=== PATIENT | male | born 1980 | race Caucasian/White ===

== ENCOUNTER 2018-03-26 18:09 | Emergency (ER) | payer OTHER ==
[~2018-03-26] VITALS: Ht 180.3 cm; Wt 122.5 kg
[2018-03-26 18:45] LABS: ABSOLUTE BASOPHIL COUNT 0 /CUMM (0.0-0.2); ABSOLUTE EOSINOPHIL COUNT 0 /CUMM (0.0-0.7); ABSOLUTE GRANULOCYTE CT 4.8 /CUMM (1.4-6.5); ABSOLUTE LYMPH COUNT 0.9 /CUMM (1.2-3.4); ABSOLUTE MONOCYTE COUNT 0.3 /CUMM (0.10-0.60); BASOPHIL % 0.2 % (0.0-2.0); EOSINOPHIL % 0.8 % (0-5); GRANULOCYTE % 78.3 % (42.2-75.2); HEMATOCRIT 51.2 % (42-52); MEAN CORPUSCULAR HGB 29.9 PG (27.0-31.0); MEAN CORPUSCULAR HGB CONC 33.7 G/DL (33.0-37.0); MEAN CORPUSCULAR VOLUME 88.7 FL (80.0-94.0); MEAN PLATELET VOLUME 7.7 FL (7.4-10.4); PLATELET COUNT 228 /CUMM (130-400); RBC DISTRIBUTION WIDTH 14.5 % (11.5-14.5); RED BLOOD CELL CT 5.77 /CUMM (4.70-6.10); WHITE BLOOD CELL COUNT 6.1 /CUMM (4.8-10.8)
[2018-03-26] MEDS ORDERED: NEURONTIN800 M2 PO (18:50)
[2018-03-26] MEDS ORDERED: SUBOXONE 8 MG-1 EACH SL (18:50)
[2018-03-26] MEDS ORDERED: DIAZEPAM5 M1 PO ×2 (18:51→21:56)
--- NOTE | 2018-03-26 19:41 | ED GI/GU/ABDOMINAL COMPLAINT ---
History of Present Illness General Chief Complaint: Abdominal Pain/Flank Pain Stated Complaint: ABD PAIN X2 WEEKS, PANIC ATTACK Source: patient, family Exam Limitations: no limitations Allergies Coded Allergies: No Known Allergies (03/26/18) Triage Note: COMPLAINS OF PANICK ATTACKS AND CONSTANT ABD PAIN FOR THE PAST 2 WEEKS Triage Nurses Notes Reviewed? yes HPI: 37 YO M with PMH of anxiety, panic attacks, OCDs, depression, drug addiction on suboxone, back pain, shoulder pain and migraine came to ED with chief of abdominal pain, nausea and anxiety for last two weeks. Patient reportedly he was in his usual state of health 2 weeks back when he suddenly started to have abdominal pain, 8/10, intermittent, generalized, nonradiating and relieved a little bit after bowel movement. Patient also reported having diarrhea for the same time. He reported that for the last 24 hours he had 2 bowel movements that were loose and nonbloody. Patient also reported having nausea and he is not able to eat anything except bone broth. This morning he had 2 bowls of bone broth. Patient reported that he is able to drink water without any complaint. He also reported having headache 8/10, generalized associated with light sensitivity. Patient denied chest pain, cough, fever, chills, vomiting, sick contact, trauma to abdomen, suicidal ideation, neck stiffness, dysuria and hematuria. Patient reported that he is taking his anxiety medications and Suboxone regularly but his anxiety medication is not working. He wanted to go to the primary care physician who is prescribing him anxiety medication but he is on vacation. Patient reported that he was taking aspirin as his primary care physician prescribed him to prevent heart disease. (Abdulkadir DOMINGUEZ,[place]) Vital Signs & Intake/Output Vital Signs & Intake/Output Vital Signs Date Time Temp Pulse Resp B/P B/P Pulse O2 O2 Flow FiO2 Mean Ox Delivery Rate 03/26 2207 97.6 87 16 122/78 97 Room Air 03/26 1848 Room Air Room Air 03/26 1825 97.1 100 18 130/86 100 Room Air ED Intake and Output 03/27 0000 03/26 1200 Intake Total 240 Output Total Balance 240 Intake, Oral 240 Patient 270 lb Weight Reconcile Medications Buprenorphine HCl/Naloxone HCl (Suboxone 8 MG-2 MG Sl Film) 8 MG-2 MG FILM 1 STR SL BIDP OPIATE (Reported) Diazepam 5 MG TABLET 1 TAB PO BID ANXIETY (Reported) Diazepam 5 MG TABLET 1 TAB PO TID PRN anxiety Gabapentin (Neurontin) 800 MG TABLET 1 TAB PO 4 TIMES/DAY "NEUROLOGICAL DAMAGE " (Reported) Hyoscyamine (Levsin) 0.125 MG TABLET 1-2 TAB PO Q6P PRN ABDOMINAL CRAMPS Ranitidine HCl (Zantac) 300 MG TABLET 1 TAB PO QPM stomache acid (Rachna DOMINGUEZ,[place]) Past History Travel History Traveled to [place] past 21 day No Medical History Any Pertinent Medical History? none Neurological: NONE EENT: NONE Cardiovascular: NONE Respiratory: NONE Gastrointestinal: NONE Hepatic: NONE Renal: NONE Musculoskeletal: NONE Psychiatric: PANICK ATTACKS Surgical History Surgical History: non-contributory Psychosocial History What is your primary language Hebrew Tobacco Use: Never used ETOH Use: denies use Illicit Drug Use: denies illicit drug use Family History Hx Contributory? No (Uziel Panchal MD) Review of Systems Review of Systems Constitutional: Reports: weakness. Denies: chills, fever. EENTM: Reports: see HPI. Respiratory: Denies: cough, short of breath, sputum production, wheezing. Cardiovascular: Reports: palpitations. Denies: chest pain, syncope. GI: Reports: abdominal pain, diarrhea, nausea. Denies: bloody stool, vomiting. Genitourinary: Denies: discharge, frequency, hematuria, pain. Musculoskeletal: Reports: see HPI. Skin: Reports: no symptoms. Neurological/Psychological: Reports: anxiety, depressed, headache. Denies: confusion, numbness, tingling. (Uziel Panchal MD) Physical Exam Physical Exam General Appearance: well developed/nourished, alert, awake, anxious Head: atraumatic, normal appearance Eyes: Bilateral: normal appearance, PERRL, EOMI, normal inspection. Ears, Nose, Throat, Mouth: hearing grossly normal Neck: normal inspection, supple Respiratory: normal breath sounds, chest non-tender Cardiovascular: regular rate/rhythm Gastrointestinal: normal bowel sounds, soft, non-tender Extremities: normal range of motion Neurologic/Psych: awake, alert, oriented x 3, normal gait Core Measures ACS in differential dx? No Sepsis Present: No Sepsis Focused Exam Completed? No (Uziel Panchal MD) Progress Differential Diagnosis: cholecystitis, diverticulitis, gastritis, inflamm bowel dis, Irritable bowel syndrom Plan of Care: Orders Procedure Date/time Status URINALYSIS 03/26 1827 Complete LIPASE 03/26 1827 Complete LACTIC ACID 03/26 1827 Complete COMPREHENSIVE METABOLIC PANEL 03/26 1827 Complete CBC WITHOUT DIFFERENTIAL 03/26 1827 Complete Laboratory Tests 03/26/182126: Lactic Acid Cancelled 03/26/181939: Urine Color YEL, Urine Clarity CLEAR, Urine pH 8.0, Ur Specific [place] 1.010, Urine Protein NEG, Urine Ketones 15 H, Urine Nitrite NEG, Urine Bilirubin NEG, Urine Urobilinogen 0.2, Ur Leukocyte Esterase NEG, Ur Microscopic EXAM NOT REQUIRED, Urine Hemoglobin NEG, Urine Glucose NEG 03/26/18 183: Anion Gap 17 H, Estimated GFR > 60, BUN/Creatinine Ratio 11.0, Glucose 170 H, Lactic Acid 1.6, Calcium 10.3 H, Total Bilirubin 1.2, AST 24, ALT 26, Alkaline Phosphatase 60, Total Protein 7.7, Albumin 4.9, Globulin 2.8, Albumin/Globulin Ratio 1.8, Lipase 78, CBC w Diff NO MAN DIFF REQ, RBC 5.77, MCV 88.7, MCH 29.9, MCHC 33.7, RDW 14.5, MPV 7.7, Gran % 78.3 H, Lymphocytes % 15.2 L, Monocytes % 5.5, Eosinophils % 0.8, Basophils % 0.2, Absolute Granulocytes 4.8, Absolute Lymphocytes 0.9 L, Absolute Monocytes 0.3, Absolute Eosinophils 0, Absolute Basophils 0 Initial ED EKG: none Comments: 37 YO M with PMH of anxiety, panic attacks, OCDs, depression, drug addiction on suboxone, back pain, shoulder pain and migraine came to ED with chief of abdominal pain, nausea and anxiety for last two weeks. Considering patient's abdominal pain that could be due to irritable bowel syndrome secondary to anxiety, could be gastroenteritis or gastritis. Patient has normal lab values and his lipase is normal, so pancreatitis is ruled out. We will do abdominal imaging study to rule out any abdominal pathology. Patient was given diazepam to control his anxiety and dicyclomine for abdominal pain. We will reevaluate the patient again and look for his imaging study results. His CT scan abdomen came back negative. We will discharge the patient and advised him to take hyoscyamine for his abdominal pain and we will increase the dose of diazepam for his anxiety. Patient was advised to see database management system specialist in 24 hours and primary care physician in a week. He was advised to come back to ED if his condition worsens. (Abdulkadir DOMINGUEZ,[place]) Departure Departure Disposition: HOME OR SELF CARE Condition: Stable Clinical Impression Primary Impression: Nonspecific abdominal pain Secondary Impressions: Anxiety Referrals: Hi DOMINGUEZ,Jeronimo Soto (PCP/Family) Robert Younger MD Departure Forms: Customer Survey General Discharge Information (Abdulkadir DOMINGUEZ,Uziel) Departure Additional Instructions: Please see your primary care physician within one week. Please see database management system specialist within 24 to 48 hours after the discharge for reevaluation. Please come back to ED if your condition worsens. Take your medications regularly. [place] diet. Consider a liquid diet until your diarrhea begins to improve. Increase your diazepam to 3 times per day. Levsin as prescribed for abdominal pain. Zantac as prescribed to control stomach acid. Prescriptions: Current Visit Scripts Hyoscyamine (Levsin) 1-2 TAB PO Q6P PRN ABDOMINAL CRAMPS #20 TAB Ranitidine HCl (Zantac) 1 TAB PO QPM #30 TAB Diazepam 1 TAB PO TID PRN anxiety #10 TAB Resident Co-Sign Statement Statement: ED Attending supervision documentation- [X] I saw and evaluated the patient. I have also reviewed all the pertinent lab results and diagnostic results. I agree with the findings and the plan of care as documented in the Resident's documentation. [] I have reviewed the ED Record and agree with the Resident's documentation. [] Additions or exceptions (if any) to the Resident's note and plan are summarized below: [] (Rachna DOMINGUEZ,[place])
--- NOTE | 2018-03-26 21:32 | CT SCAN REPORT ---
EXAMINATION: CT ABDOMEN AND PELVIS WITHOUT CONTRAST CLINICAL INFORMATION: Diverticulosis, inflammatory bowel disease with abdominal pain, nausea and diarrhea. COMPARISON: CT abdomen and pelvis 04/19/2010. TECHNIQUE: Multidetector volumetric imaging was performed from the superior aspect of the liver through the pubic symphysis. Sagittal and coronal reformatted images were obtained on the technologist's workstation. DLP: 1076.48 mGy-cm FINDINGS: LUNG BASES: Small 3.6 mm pleural-based nodule is noted at the left base which was present in 2009. The lung bases are otherwise clear. LIVER, GALLBLADDER, AND BILIARY TREE: Two large calcified granulomas are present in the liver The liver is normal in size, shape, and attenuation. No focal worrisome hepatic lesion or biliary ductal dilatation is present. The gallbladder is unremarkable with no evidence of radiopaque gallstones, gallbladder wall thickening, or obvious pericholecystic inflammatory changes. PANCREAS: Unremarkable. SPLEEN: Large calcified granulomas are present. ADRENAL GLANDS: Unremarkable. KIDNEYS AND URETERS: The kidneys are normal in size, shape, and attenuation. No hydronephrosis, hydroureter, or calculi seen. No perinephric stranding. BLADDER: There is symmetric thickening of the contracted bladder. GASTROINTESTINAL TRACT: The small and large bowel are unremarkable. The appendix contains a small density possibly an appendicolith but is otherwise unremarkable without inflammatory changes. ABDOMINAL WALL: No significant hernia is appreciated. LYMPH NODES: Small para-aortic lymph nodes are present but there is no adenopathy. VASCULAR: Unremarkable. No evidence of AAA. PELVIC VISCERA: Unremarkable. OSSEOUS STRUCTURES: Unremarkable. IMPRESSION: 1. The cause for the patient's abdominal pain, nausea and diarrhea has not been found. 2. Incidental note made of: a. Hepatic and splenic granulomas. b. Contracted thick-walled bladder.
[2018-03-26] MEDS ORDERED: LEVSIN0.125 M1 PO (21:56)
[2018-03-26] MEDS ORDERED: ZANTAC300 MG PO (21:56)
[2018-03-26 22:07] VITALS: BP 122/78
== END 2018-03-26 22:12 ==
LOC: ERH 18:09
PROVIDERS: Physician Assistant
DX: R10.9 Unspecified abdominal pain (principal); F41.9 Anxiety disorder, unspecified
CPT/HCPCS: 74176; 81003; J3360